=== PATIENT | male | born 1995 | race African-American/Black ===

== ENCOUNTER 2018-03-21 08:36 | Emergency (ER) | payer OTHER ==
[2018-03-21 10:10] LABS: #Basophils 0.1 thou/uL (0.0-0.2); #Eosinphils 0.1 thou/uL (0.0-0.7); #Lymphocytes 0.9 thou/uL (1.20-3.40); #Monocytes 1.1 thou/uL (0.11-0.59); %Basophils 0.4 % (0.0-1.0); %Eosinophils 0.6 % (0.0-10.0); %Lymphocytes 7.2 % (28.0-48.0); %Monocytes 8.4 % (0.0-4.0); %Neutrophils 83.4 % (31.0-61.0); Hemoglobin 8.6 g/dL (14.0-18.0); Mean Corpuscular Hemoglobin 20.2 pg (25.0-35.0); Mean Corpuscular Volume 69.7 fL (78.0-98.0); Mean Platelet Volume 9.9 fL (7.4-10.4); Platelet Count 323 thou/uL (130-400); RBC Distribution Width 17.4 % (11.5-14.5); Red Blood Cell (RBC) Count 4.27 mill/uL (4.00-5.20); White Blood Cell (WBC) Count 13.2 thou/uL (4.8-10.8)
[2018-03-21 10:32] LABS: ALT (SGPT) 127 U/L (8-55); AST (SGOT) 206 U/L (5-34); Albumin 3.7 g/dL (3.5-5.0); Alkaline Phosphatase 222 U/L (Less than 750); Anion Gap 15 mmol/L (10-20); BUN (Urea Nitrogen) 12 mg/dL (8.9-20.6); Bilirubin, Total 0.9 mg/dL (0.2-1.2); Calc. Creatinine Clearance 0 mL/min (70-130); Carbon Dioxide 27 mmol/L (22-29); Chloride 98 mmol/L (98-107); Estimated GFR-MDRD Greater than 90; Globulin 3.1 g/dL (2.4-3.5); Glucose 97 mg/dL (70-105); Lipase 9 U/L (8-78); Potassium 4.8 mmol/L (3.5-5.1); Protein, Total 6.8 g/dL (6.0-8.3); Sodium 135 mmol/L (136-145)
[2018-03-21 10:36] LABS: Elliptocytes SLIGHT = 2-5 cells (100X) (0-1/hpf); Hypochromia SLIGHT = 6-15 cells (100X) (0-5/hpf); MDiff Complete? YES; Microcytosis MODERATE=15-30 cells (100X) (0-5/hpf); Ovalocytes MODERATE= 6-15 cells (100X) (0-1/hpf); PLT Morphology Comment Appears Adequate; Polychromasia SLIGHT = 2-3 cells (100X) (0-2/hpf)
[2018-03-21 11:01] LABS: Bilirubin Negative (Negative); Blood, Urine Negative (Negative); Glucose, Urine (Dipstick) Negative (Negative); Leukocyte Negative (Negative); Nitrite Negative (Negative); Protein, Urine (Dipstick) Negative (Neg-Trace); Specific Gravity, Urine 1.015 (1.005-1.030)
[2018-03-21 11:02] LABS: Clarity Clear (Clear)
[2018-03-21 12:24] LABS: HBCM Index 0.09 S/CO (0-0.79); HBSAg Index 0.15 S/CO (0-0.99); Hep A IgM AB Non-Reactive (NonReactive); Hep A IgM S/CO 0.22 S/CO (0-0.79); Hep B Surf Ag Non-Reactive S/CO (NonReactive); Hep C IgG Ab Non-Reactive (NonReactive); Hepatitis B Core IGM Abs Non-Reactive (NonReactive)
[2018-03-21] MEDS ORDERED: Iopamidol 370 76% 50 ML VIAL FS ONE (12:55)
[2018-03-21] MEDS ORDERED: ISOVUE-370 76%-LOCM 1 ML ONE (12:55)
--- NOTE | 2018-03-21 13:52 | CT ---
CT ABDOMEN AND PELVIS WITH CONTRAST: HISTORY: A 22-year-old presents with a history of abdominal pain for three weeks. Nausea. Bright blood in st ool. TECHNIQUE: Contrast enhanced CT images of the abdomen and pelvis are obtained after the administration of IV and oral contrast. FINDINGS: CT images demonstrate the lung bases to be unremarkable. No evidence of free intraperitoneal air is seen. The liver demonstrates marked hepatomegaly. There are numerous hypodense lesions, too numerous to co unt, throughout the liver, concerning for extensive metastatic disease. The gallbladder is somewhat contracted. The spleen is unremarkable. The adrenal glands are difficult to visualize, but no evide nce of adrenal masses or lesions is seen. The kidneys are unremarkable. No dilated loops of small bowel are seen. A moderate amount of stool is seen in the colon. There does appear to be some thickening surrounding the rectum, concerning for a possible rectal mass or diffuse rectal wall thickening. There do appear to be some enlarged lymph nodes surrounding the rectum and rectosigmoid junction. Th ere is also an enlarged mass to the left of the colon, at the rectosigmoid junction, diameter measuri ng approximately 3.2 x 3.3 cm. IMPRESSION: 1. Possible circumferential rectal mass with adjacent areas of lymphadenopathy. 2. Extensive hepatic lesions, compatible with extensive hepatic metastatic lesions. POS: [facility]
[2018-03-21] MEDS ORDERED: Ondansetron ODT 4 MG TAB ONE (17:23)
== END 2018-03-21 19:24 | disposition short-term general hospital (02) ==
LOC: ERS 08:36
DX: C78.7 Secondary malignant neoplasm of liver and intrahepatic bile duct (principal); K63.89 Other specified diseases of intestine; Z79.899 Other long term (current) drug therapy
CPT/HCPCS: 74177; 80053; 80074; 81003; 83690; 85025; 96361; 96374; J2270; Q0162